=== PATIENT | male | born 1970 | race Caucasian/White ===

== ENCOUNTER → 2021-11-25 08:31 | Outpatient (BNVA) | payer OTHER, SELFPAY | PROVIDERS: PCP Nurse Practitioner Family; Visit Provider Urology | DX: N30.10 Interstitial cystitis (chronic) without hematuria (principal) | CPT/HCPCS: 51798 ==

== ENCOUNTER → 2022-11-25 08:29 | Outpatient (BNVA) | payer OTHER, SELFPAY | PROVIDERS: PCP Nurse Practitioner Family; Visit Provider Urology | DX: Z13.89 Encounter for screening for other disorder (principal) ==

== ENCOUNTER 2023-11-30 08:29 | Outpatient (AMB) | payer OTHER, SELFPAY ==
--- NOTE | 2023-11-30 08:42 | A.OFFVIS_ITS ---
Intake Intake Visit Reasons: 1Y Follow Up(interstitial cystitis) Intake Note: Patient presents today for a follow-up on: Interstitial Cystitis Meds- None Allergies to Antibiotic- No Known Allergies Blood Thinner- None Patient Symptoms: Patient stated he has the same symptoms of his current condition. Fashion Adviser Required: No Accompanied by: Self / Same As Patient Allergies No Known Allergies Allergy (Verified 11/30/23 08:50) HPI HPI Comments History of Present Illness Details Mr Crow is a very pleasant male. They are a patient of Dr Espinal. They are seen in the office today for the following urologic conditions. - interstitial cystitis - erectile dysfunction Bladder stable as long as maintain diet Discussed again use of Tums and famotodine Found bottle of ranitidine that worked very well for symptom control Discussed swimming hole in [facility] and [facility] Interstitial cystitis: ? The interstitial cystitis was diagnosed?when he was in his 20's.? Current symptoms include?pelvic tenderness, urinary frequency, urinary urgency these have been present for many years. At this point in time he wakes 2 times at night. - ranitidine controls dysuria.? Severity of the pain?that is moderate ? Character of the pain is?chronic, dull, fluctuating ? Aggravating factors include stress ? Alleviating factors include?no alleviating factors ? Recent labs included?02/15 T 419 ?11/18 PSA 1.5.? Prior testing included?cystoscopy with bladder distention performed. Around 1999. Led to aggravation of symptoms [facility] Medical History Hypertension, benign Interstitial cystitis Nocturia Priapism Weak urinary stream Surgical History History of surgery Review of Systems Const Denies chills and Denies fever(s) Card Reports no additional complaints and Denies syncope Resp Denies cough GI Denies abdominal pain and Denies heartburn Reports as per HPI and Denies change in libido Neuro Denies syncope Psych Denies change in libido Endo Denies change in libido Physical Exam Const General: cooperative, healthy appearing, comfortable and no acute distress Orientation/consciousness: patient oriented x3 HEENT Face and sinus: Yes normal facial exam Mouth: moist mucous membranes Neck Neck: Yes normal visual inspection, Yes full ROM and Yes trachea midline Chest Chest palpation & inspection: normal inspection of the chest Resp Effort & Inspection: normal respiratory effort, able to speak in complete sentences and no respiratory distress GI Inspection: Yes normal to inspection Back/Spine/Pelvis Cervical Spine: normal cervical lordosis Thoracic/Lumbar Spine: thoracic and lumbar spine normal to inspection Skin General skin exam: no rashes or lesions noted Neuro General: patient oriented x3, gait normal, tone normal and moves all extremities Extrem General: Yes normal to inspection and Yes capillary refill normal Results AMB Urinalysis, Automated UA Leukoctes 0 Sarah/uL Last Edit by Bailey Aquino CMA on 11/30/23 08 :56 UA Nitrite Negative Last Edit by Bailey Aquino CMA on 11/30/23 08: 56 UA Urobilinogen 0.2 mg/dL Last Edit by Bailey Aquino CMA on 4 08:56 UA Protein 15 mg/dL Last Edit by Bailey Aquino CMA on 11/30/23 08:5 6 UA pH 6.0 Last Edit by Bailey Aquino CMA on 11/30/23 08:56 UA Blood 25 Roberto Carlos/uL Last Edit by Bailey Aquino CMA on 11/30/23 08:56 UA Specific [place] 1.030 Last Edit by Bailey Aquino CMA on 08:56 UA Ketone Negative Last Edit by Bailey Aquino CMA on 11/30/23 08:5 6 UA Bilirubin 0 mg/dL Last Edit by Bailey Aquino CMA on 11/30/23 08: 56 UA Glucose 0 mg/dL Last Edit by Bailey Aquino CMA on 11/30/23 08:56 Assessment & Plan Assessment & Plan (1) Interstitial cystitis: Code(s): N30.10 - Interstitial cystitis (chronic) without hematuria Plan 12 month follow-up Orders: Orders AMB Urinalysis Automated Today R33.9 - Retention of urine, unspecified Patient Instructions: Imaging studies, laboratory and physical exam results were discussed and reviewed in detail. No major barriers to patient understanding were identified. An opportunity to ask questions regarding the treatment plan was provided. All questions were answered. The patient expressed understanding and agreement with the above treatment plan. The patient is aware they should contact our office by phone for worsening of their current condition or the appearance of new urologic symptoms. Compliance is encouraged with any medications and followup testing that is ordered. It is a privilege to participate in the urologic care of your patient. If you have any questions or concerns regarding treatment for the above conditions, or other urologic issues, please do not hesitate to contact me. The office telephone contact is [phone]. This note is constructed using voice recognition software. While every effort has been made to ensure accuracy manager process excellence errors may have been included. Yours sincerely, Dr Jaleel Mckeon MD, [facility] - Urology Providers of Expert, Compassionate Care for the Genitourinary System Coding Level of Care Code Est Pt Level 4 (70130) Diagnoses Interstitial cystitis N30.10
== END 2023-11-30 09:05 | disposition home or self-care (01) ==
PROVIDERS: Visit Provider Urology
DX: N30.10 Interstitial cystitis (chronic) without hematuria (principal); R33.9 Retention of urine, unspecified
CPT/HCPCS: 99213

== ENCOUNTER → 2023-11-30 08:29 | Outpatient (BNVA) | payer OTHER, SELFPAY | PROVIDERS: Visit Provider Urology | DX: N30.10 Interstitial cystitis (chronic) without hematuria (principal) | CPT/HCPCS: 81003 ==

== ENCOUNTER 2024-06-05 09:25 | Outpatient (REF) | payer OTHER, SELFPAY ==
[2024-06-05 11:42] LABS: Appearance Urine Clear; Color Urine Dark Yellow; Glucose Urine UA Negative (Negative); Leukocyte Esterase Urine Negative (Negative); Nitrite Urine Negative (Negative); PH 5.5 (5.0-9.0); Specific Gravity - Urine >= 1.030 (1.005-1.025); Urine Blood Negative (Negative); Urine Ketones Trace mg/dL (Negative); Urine Protein Trace mg/dL (Neg-Trace)
[2024-06-05 11:47] LABS: Bacteria Urine None Seen (None Seen); Hyaline Casts Urine 0-2 /LPF (0-2); RBC Urine 0-2 /HPF (0-2); Squamous Epithelial Cell Urine 0-2 /HPF (0-2); WBC Urine 0-5 /HPF (0-5)
== END 2024-06-05 09:26 | disposition home or self-care (01) ==
LOC: HO.WFDLDS 09:25
PROVIDERS: Visit Provider Urology
DX: N30.10 Interstitial cystitis (chronic) without hematuria (principal)
CPT/HCPCS: 81001; 87086

== ENCOUNTER 2024-07-05 12:57 | Outpatient (AMB) | payer OTHER, SELFPAY ==
--- NOTE | 2024-07-05 13:23 | MHC.OFFVIS ---
Intake Visit Reasons: IC flare? Intake Note: Patient is Present for IC Flare up concerns Urology Medication: None Antibiotic Allergies:None Blood Thinners: None Patient states that he has been having dull pain in his bladder area that is present all the time. Patient states that the pain does come and go but it has been very painful for patient. Patient has recently been triaged by nurse, pt had reported then that he gets radiating pain after intercourse. Patient is concerned on his symptoms Education Liaison Required: No Accompanied by: Self / Same As Patient Allergies No Known Allergies Allergy (Verified 07/05/24 13:25) HPI Comments Details: Mr Crow is a very pleasant male. They are a patient of Dr Espinal. They are seen in the office today for the following urologic conditions. - interstitial cystitis - erectile dysfunction - prostatitis Pain with ejaculation On exam with prostatitis Therapy with Bactrim, Naprosyn, prednisone 4 week follow-up Bladder stable as long as maintain diet Discussed again use of Tums and famotodine Found bottle of ranitidine that worked very well for symptom control Discussed swimming [facility] Interstitial cystitis: ? The interstitial cystitis was diagnosed?when he was in his 20's.? Current symptoms include?pelvic tenderness, urinary frequency, urinary urgency these have been present for many years. At this point in time he wakes 2 times at night. - ranitidine controls dysuria.? Severity of the pain?that is moderate ? Character of the pain is?chronic, dull, fluctuating ? Aggravating factors include stress ? Alleviating factors include?no alleviating factors ? Recent labs included?02/15 T 419 ?11/18 PSA 1.5.? Prior testing included?cystoscopy with bladder distention performed. Around 1999. Led to aggravation of symptoms COUNT INCLUDES [facility] Medical History (Updated 07/05/24 @ 13:31 by Jaleel Mckeon MD) Hypertension, benign Nocturia Weak urinary stream Priapism Interstitial cystitis Surgical History History of surgery Review of Systems Const Denies chills and Denies fever(s) Card Reports no additional complaints and Denies syncope Resp Denies cough GI Denies abdominal pain and Denies heartburn Reports as per HPI and Denies change in libido Neuro Denies syncope Psych Denies change in libido Endo Denies change in libido Physical Exam Const General: cooperative, healthy appearing, comfortable and no acute distress Orientation/consciousness: patient oriented x3 HEENT Face and sinus: Yes normal facial exam Mouth: moist mucous membranes Neck Neck: Yes normal visual inspection, Yes full ROM and Yes trachea midline Chest Chest palpation & inspection: normal inspection of the chest Resp Effort & Inspection: normal respiratory effort, able to speak in complete sentences and no respiratory distress GI Inspection: Yes normal to inspection Rectal Exam - Male: Yes normal sphincter tone and Yes prostate normal Male General Exam: Yes normal external exam Penis: normal penis and circumcised Meatus: meatus normal Scrotum: scrotum normal Testes: Testes normal Back/Spine/Pelvis Cervical Spine: normal cervical lordosis Thoracic/Lumbar Spine: thoracic and lumbar spine normal to inspection Skin General skin exam: no rashes or lesions noted Neuro General: patient oriented x3, gait normal, tone normal and moves all extremities Extrem General: Yes normal to inspection and Yes capillary refill normal Results AMB Urinalysis, Automated UA Leukoctes 0 Sarah/uL Last Edit by CARROLL Campoverde on 07/05/24 13:40 UA Nitrite Negative Last Edit by CARRLOL Campoverde on 07/05/24 13:40 UA Urobilinogen 0.2 mg/dL Last Edit by CARROLL Campoverde on 07/05/24 13:40 UA Protein 0 mg/dL Last Edit by CARROLL Campoverde on 07/05/24 13:40 UA pH 5.5 Last Edit by CARROLL Campoverde on 07/05/24 13:40 UA Blood 0 Roberto Carlos/uL Last Edit by CARROLL Campoverde on 07/05/24 13:40 UA Specific [place] 1.015 Last Edit by CARROLL Campoverde on 07/05/24 13:40 UA Ketone Negative Last Edit by CARROLL Campoverde on 07/05/24 13:40 UA Bilirubin 0 mg/dL Last Edit by CARROLL Campoverde on 07/05/24 13:40 UA Glucose 0 mg/dL Last Edit by CARROLL Campoverde on 07/05/24 13:40 Assessment & Plan Assessment & Plan (1) Weak urinary stream: Code(s): R39.12 - Poor urinary stream Category: Medical (2) Prostatitis: Code(s): N41.9 - Inflammatory disease of prostate, unspecified Category: Medical (3) Interstitial cystitis: Code(s): N30.10 - Interstitial cystitis (chronic) without hematuria Category: Medical Plan Four week follow-up Orders: Orders AMB Urinalysis Automated Today Z13.9 - Encounter for screening, unspecified Medications: New sulfamethoxazole-trimethoprim 800-160 mg (Bactrim DS) 1 tab PO BID 14 days 28 tabs 0RF N39.0 - Urinary tract infection, site not specified, N41.9 - Inflammatory disease of prostate, unspecified naproxen (Naprosyn) 500 mg PO Q12H 30 days PRN 60 tabs 0RF pain N41.9 - Inflammatory disease of prostate, unspecified, S39.91XA - Unspecified injury of abdomen, initial encounter prednisone 20 mg PO DAILY 5 days 5 tabs 0RF N20.0 - Calculus of kidney, N41.9 - Inflammatory disease of prostate, unspecified Patient Instructions: Imaging studies, laboratory and physical exam results were discussed and reviewed in detail. No major barriers to patient understanding were identified. An opportunity to ask questions regarding the treatment plan was provided. All questions were answered. The patient expressed understanding and agreement with the above treatment plan. The patient is aware they should contact our office by phone for worsening of their current condition or the appearance of new urologic symptoms. Compliance is encouraged with any medications and followup testing that is ordered. It is a privilege to participate in the urologic care of your patient. If you have any questions or concerns regarding treatment for the above conditions, or other urologic issues, please do not hesitate to contact me. The office telephone contact is [phone]. This note is constructed using voice recognition software. While every effort has been made to ensure accuracy routing machine operator errors may have been included. Yours sincerely, Dr Jaleel Mckeon MD, [facility] - Urology Providers of Expert, Compassionate Care for the Genitourinary System Coding Level of Care Code Est Pt Level 4 (37651) Diagnoses Weak urinary stream R39.12 Prostatitis N41.9 Interstitial cystitis N30.10
== END 2024-07-05 13:53 | disposition home or self-care (01) ==
PROVIDERS: PCP Nurse Practitioner Family; Visit Provider Urology
DX: R39.12 Poor urinary stream (principal); N41.9 Inflammatory disease of prostate, unspecified; N30.10 Interstitial cystitis (chronic) without hematuria; Z13.9 Encounter for screening, unspecified
CPT/HCPCS: 99214

== ENCOUNTER → 2024-07-05 12:57 | Outpatient (BNVA) | payer OTHER, SELFPAY | PROVIDERS: PCP Nurse Practitioner Family; Visit Provider Urology | DX: N30.10 Interstitial cystitis (chronic) without hematuria (principal); N41.9 Inflammatory disease of prostate, unspecified; R39.12 Poor urinary stream | CPT/HCPCS: 81003 ==

== ENCOUNTER 2024-08-22 11:38 | Outpatient (AMB) | payer OTHER, SELFPAY ==
--- NOTE | 2024-08-22 11:45 | A.OFFVIS_ITS ---
Intake Visit Reasons: UTI Symptoms/Microgen Intake Note: Patient is present for UTI symptoms/Microgen testing Allergies No Known Allergies Allergy (Verified 07/05/24 13:25) HPI Comments Details: Mr Crow is a very pleasant male. They are a patient of Dr Espinal. They are seen in the office today for the following urologic conditions. - interstitial cystitis - erectile dysfunction - prostatitis Persistent prostatitis Prior therapy with Bactrim, Naprosyn and prednisone Microgen performed today One-week follow-up tele for targeted therapy Found bottle of ranitidine that worked very well for symptom control Discussed swimming hole in [facility] and [facility] Interstitial cystitis: ? The interstitial cystitis was diagnosed?when he was in his 20's.? Current symptoms include?pelvic tenderness, urinary frequency, urinary urgency these have been present for many years. At this point in time he wakes 2 times at night. - ranitidine controls dysuria.? Severity of the pain?that is moderate ? Character of the pain is?chronic, dull, fluctuating ? Aggravating factors include stress ? Alleviating factors include?no alleviating factors ? Recent labs included?02/15 T 419 ?11/18 PSA 1.5.? Prior testing included?cystoscopy with bladder distention performed. Around 1999. Led to aggravation of symptoms [facility] Medical History (Updated 07/05/24 @ 13:31 by Jaleel Mckeon MD) Hypertension, benign Nocturia Weak urinary stream Priapism Interstitial cystitis Surgical History History of surgery Review of Systems Const Denies chills and Denies fever(s) Card Reports no additional complaints and Denies syncope Resp Denies cough GI Denies abdominal pain and Denies heartburn Reports as per HPI and Denies change in libido Neuro Denies syncope Psych Denies change in libido Endo Denies change in libido Physical Exam Const General: cooperative, healthy appearing, comfortable and no acute distress Orientation/consciousness: patient oriented x3 HEENT Face and sinus: Yes normal facial exam Mouth: moist mucous membranes Neck Neck: Yes normal visual inspection, Yes full ROM and Yes trachea midline Chest Chest palpation & inspection: normal inspection of the chest Resp Effort & Inspection: normal respiratory effort, able to speak in complete sentences and no respiratory distress GI Inspection: Yes normal to inspection Rectal Exam - Male: Yes normal sphincter tone and Yes prostate normal Male General Exam: Yes normal external exam Penis: normal penis and circumcised Meatus: meatus normal Scrotum: scrotum normal Testes: Testes normal Back/Spine/Pelvis Cervical Spine: normal cervical lordosis Thoracic/Lumbar Spine: thoracic and lumbar spine normal to inspection Skin General skin exam: no rashes or lesions noted Neuro General: patient oriented x3, gait normal, tone normal and moves all extremities Extrem General: Yes normal to inspection and Yes capillary refill normal Assessment & Plan Assessment & Plan (1) Prostatitis: Code(s): N41.9 - Inflammatory disease of prostate, unspecified Category: Medical Plan Follow-up next week for determination of antibiotics Orders: Orders AMB Urinalysis Automated Today Z13.9 - Encounter for screening, unspecified Patient Instructions: Imaging studies, laboratory and physical exam results were discussed and reviewed in detail. No major barriers to patient understanding were identified. An opportunity to ask questions regarding the treatment plan was provided. All questions were answered. The patient expressed understanding and agreement with the above treatment plan. The patient is aware they should contact our office by phone for worsening of their current condition or the appearance of new urologic symptoms. Compliance is encouraged with any medications and followup testing that is ordered. It is a privilege to participate in the urologic care of your patient. If you have any questions or concerns regarding treatment for the above conditions, or other urologic issues, please do not hesitate to contact me. The office telephon e contact is [phone]. This note is constructed using voice recognition software. While every effort has been made to ensure accuracy healthcare market consultant errors may have been included. Yours sincerely, Dr Jaleel Mckeon MD, [facility] - Urology Providers of Expert, Compassionate Care for the Genitourinary System Coding Level of Care Code Est Pt Level 4 (50542) Diagnoses Prostatitis N41.9
== END 2024-08-22 12:16 | disposition home or self-care (01) ==
PROVIDERS: PCP Nurse Practitioner Family; Visit Provider Urology
DX: N41.9 Inflammatory disease of prostate, unspecified (principal)
CPT/HCPCS: 99214

== ENCOUNTER → 2024-08-22 11:38 | Outpatient (BNVA) | payer OTHER, SELFPAY | PROVIDERS: PCP Nurse Practitioner Family; Visit Provider Urology ==

== ENCOUNTER 2024-08-29 08:06 | Outpatient (AMB) | payer OTHER, SELFPAY ==
--- NOTE | 2024-08-29 08:08 | A.OFFVIS_ITS ---
Intake Visit Reasons: 1w/microgen(set)level 1/2 Intake Note: Patient is present for Telephone Microgen results Urology Med: started Linezoid today Antibiotic Allergies: None Blood Thinner: None Microgen 08/22/2024 Patient finished course of Doxycycline Filler Operator Required: No Accompanied by: Self / Same As Patient Allergies No Known Allergies Allergy (Verified 08/29/24 08:09) HPI Comments Details: Mr Crow is a very pleasant male. They are a patient of Dr Espinal. They are seen in the office today for the following urologic conditions. - interstitial cystitis - erectile dysfunction - prostatitis Telemedicine Evaluation 15 min Consultation [employer] Persistent prostatitis Prior therapy with Bactrim, Naprosyn and prednisone Microgen - combination Staphylococcus and corynebacterium Will treat with 2 weeks of linezolid 8 week follow-up Found bottle of ranitidine that worked very well for symptom control Discussed swimming hole in [facility] and [facility] Interstitial cystitis: ? The interstitial cystitis was diagnosed?when he was in his 20's.? Current symptoms include?pelvic tenderness, urinary frequency, urinary urgency these have been present for many years. At this point in time he wakes 2 times at night. - ranitidine controls dysuria.? Severity of the pain?that is moderate ? Character of the pain is?chronic, dull, fluctuating ? Aggravating factors include stress ? Alleviating factors include?no alleviating factors ? Recent labs included?02/15 T 419 ?11/18 PSA 1.5.? Prior testing included?cystoscopy with bladder distention performed. Around 1999. Led to aggravation of symptoms PFSH Medical History Hypertension, benign Nocturia Weak urinary stream Priapism Interstitial cystitis Surgical History History of surgery Review of Systems Const All systems reviewed & are unremarkable except as noted in HPI and below Reports no additional complaints Resp Reports no additional complaints GI Reports no additional complaints Reports as per HPI Musc Reports no additional complaints Physical Exam Telemedicine evaluation Appropriate responses Regular breathing rate and rhythm HEENT Head: Yes normal to inspection Ears: hearing grossly normal bilaterally Eyes General: appearance normal, both eyes and all related structures Neck Neck: Yes normal visual inspection Chest Chest palpation & inspection: normal inspection of the chest Resp Effort & Inspection: normal respiratory effort and able to speak in complete sentences Telehealth Telehealth Telehealth Platform: [employer] Location of provider rendering services: practice address Location of patient: address on file Patient Identification confirmed using: Name, : Yes Telehealth method: video Patient verbally consented to treatment: Yes Patient verbally consented to billing insurance company: Yes Patient informed of any privacy concerns related to visit: Yes Minutes spent on Phone/Video with Pt.: 15 Assessment & Plan Assessment & Plan (1) Interstitial cystitis: Code(s): N30.10 - Interstitial cystitis (chronic) without hematuria Category: Medical (2) Prostatitis: Code(s): N41.9 - Inflammatory disease of prostate, unspecified Category: Medical Plan Linezolid Eight week follow-up Patient Instructions: Imaging studies, laboratory and physical exam results were discussed and reviewed in detail. No major barriers to patient understanding were identified. An opportunity to ask questions regarding the treatment plan was provided. All questions were answered. The patient expressed understanding and agreement with the above treatment plan. The patient is aware they should contact our office by phone for worsening of their current condition or the appearance of new urologic symptoms. Compliance is encouraged with any medications and followup testing that is ordered. It is a privilege to participate in the urologic care of your patient. If you have any questions or concerns regarding treatment for the above conditions, or other urologic issues, please do not hesitate to contact me. The office telephone contact is [phone]. This note is constructed using voice recognition software. While every effort has been made to ensure accuracy paint roller winder errors may have been included. Yours sincerely, Dr Jaleel Mckeon MD, [facility] - Urology Providers of Expert, Compassionate Care for the Genitourinary System Coding Level of Care Code Tele Est Pt Level 3 (79211) Diagnoses Interstitial cystitis N30.10 Prostatitis N41.9
== END 2024-08-29 09:10 | disposition home or self-care (01) ==
LOC: HO.HUSH 08:06
PROVIDERS: PCP Nurse Practitioner Family; Visit Provider Urology
DX: N30.10 Interstitial cystitis (chronic) without hematuria (principal); N41.9 Inflammatory disease of prostate, unspecified
CPT/HCPCS: 99213

== ENCOUNTER → 2024-08-29 08:06 | Outpatient (BNVA) | payer OTHER, SELFPAY | PROVIDERS: PCP Nurse Practitioner Family; Visit Provider Urology ==

== ENCOUNTER 2024-10-24 10:15 | Outpatient (AMB) | payer OTHER, SELFPAY ==
--- NOTE | 2024-10-24 10:16 | MHC.OFFVIS ---
Intake Visit Reasons: 8w follow up Intake Note: Patient is present for 8W F/U Urology Medication:NAPROXEN Antibiotic Allergy:NONE Blood Thinner:NONE Medical Oncology Physician Required: No Allergies No Known Allergies Allergy (Verified 10/24/24 10:16) HPI Comments Details: Mr Crow is a very pleasant male. They are a patient of Dr Cason. They are seen in the office today for the following urologic conditions. - interstitial cystitis - erectile dysfunction - prostatitis Telemedicine Evaluation 15 min Consultation Character Booster Eulogio Video Persistent prostatitis Prior therapy with Bactrim, Naprosyn and prednisone Microgen - combination Staphylococcus and corynebacterium Treated with 4 weeks of combination doxcycyline, clindamycin Found bottle of ranitidine that worked very well for symptom control [facility] and [facility] Interstitial cystitis: ? The interstitial cystitis was diagnosed?when he was in his 20's.? Current symptoms include?pelvic tenderness, urinary frequency, urinary urgency these have been present for many years. At this point in time he wakes 2 times at night. - ranitidine controls dysuria.? Severity of the pain?that is moderate ? Character of the pain is?chronic, dull, fluctuating ? Aggravating factors include stress ? Alleviating factors include?no alleviating factors ? Recent labs included?02/15 T 419 ?11/18 PSA 1.5.? Prior testing included?cystoscopy with bladder distention performed. Around 1999. Led to aggravation of symptoms [facility] Medical History Hypertension, benign Nocturia Weak urinary stream Priapism Interstitial cystitis Surgical History History of surgery Review of Systems Const All systems reviewed & are unremarkable except as noted in HPI and below Reports no additional complaints Resp Reports no additional complaints GI Reports no additional complaints Reports as per HPI Musc Reports no additional complaints Physical Exam Telemedicine evaluation Appropriate responses Regular breathing rate and rhythm HEENT Head: Yes normal to inspection Ears: hearing grossly normal bilaterally Eyes General: appearance normal, both eyes and all related structures Neck Neck: Yes normal visual inspection Chest Chest palpation & inspection: normal inspection of the chest Resp Effort & Inspection: normal respiratory effort and able to speak in complete sentences Telehealth Telehealth Location of provider rendering services: practice address Location of patient: address on file Patient Identification confirmed using: Name, : Yes Telehealth method: voice only Patient verbally consented to treatment: Yes Patient verbally consented to billing insurance company: Yes Patient informed of any privacy concerns related to visit: Yes Assessment & Plan Assessment & Plan (1) Interstitial cystitis: Code(s): N30.10 - Interstitial cystitis (chronic) without hematuria Category: Medical (2) Prostatitis: Code(s): N41.9 - Inflammatory disease of prostate, unspecified Category: Medical Plan Trial antibiotics Four week follow-up Medications: New doxycycline hyclate 100 mg PO DAILY 28 days 28 tabs 0RF N30.90 - Cystitis, unspecified without hematuria, N41.9 - Inflammatory disease of prostate, unspecified clindamycin HCl 300 mg PO TID 21 days 63 caps 0RF N41.9 - Inflammatory disease of prostate, unspecified Patient Instructions: Imaging studies, laboratory and physical exam results were discussed and reviewed in detail. No major barriers to patient understanding were identified. An opportunity to ask questions regarding the treatment plan was provided. All questions were answered. The patient expressed understanding and agreement with the above treatment plan. The patient is aware they should contact our office by phone for worsening of their current condition or the appearance of new urologic symptoms. Compliance is encouraged with any medications and followup testing that is ordered. It is a privilege to participate in the urologic care of your patient. If you have any questions or concerns regarding treatment for the above conditions, or other urologic issues, please do not hesitate to contact me. The office telephone contact is [phone]. This note is constructed using voice recognition software. While every effort has been made to ensure accuracy library circulation clerk errors may have been included. Yours sincerely, Dr Jaleel Mckeon MD, [place] [facility] - Urology Providers of Expert, Compassionate Care for the Genitourinary System Coding Level of Care Code Tele Est Pt Level 4 (21093) Diagnoses Interstitial cystitis N30.10 Prostatitis N41.9
== END 2024-10-24 11:28 | disposition home or self-care (01) ==
LOC: HO.HUSH 10:15
PROVIDERS: PCP Nurse Practitioner Family; Visit Provider Urology
DX: N30.10 Interstitial cystitis (chronic) without hematuria (principal); N41.9 Inflammatory disease of prostate, unspecified
CPT/HCPCS: 99442

== ENCOUNTER 2024-11-19 09:08 | Outpatient (AMB) | payer OTHER, SELFPAY ==
--- NOTE | 2024-11-19 09:09 | MHC.OFFVIS ---
Intake Visit Reasons: 4w followup(Linezolid) Intake Note: Patient is present for 4W F/U (LINEZOLID) Urology Medication:NAPROXEN Antibiotic Allergy:NONE Blood Thinner:NONE Territory Sales Executive Required: No Allergies No Known Allergies Allergy (Verified 11/19/24 09:09) HPI Comments Details: Mr Crow is a very pleasant male. They are a patient of Dr Cason. They are seen in the office today for the following urologic conditions. - interstitial cystitis - erectile dysfunction - prostatitis Telemedicine Evaluation 15 min Consultation MoneyReef Eulogio Video f/u from 4 weeks of linezolid therapy Has had improvement still with some discomfort in his pelvis Switch to Mobic for 1 month Discussed symptoms from infection versus inflammation perspective Six-month follow-up Prostatitis Prior therapy with Bactrim, Naprosyn and prednisone Microgen - 08/22 combination Staphylococcus and corynebacterium - initial therapy 4 weeks of combination doxcycyline, clindamycin Found bottle of ranitidine that worked very well for symptom control Previously discussed swimming hole in [facility] and [facility] Interstitial cystitis: ? The interstitial cystitis was diagnosed?when he was in his 20's.? Current symptoms include?pelvic tenderness, urinary frequency, urinary urgency these have been present for many years. At this point in time he wakes 2 times at night. - ranitidine controls dysuria.? Severity of the pain?that is moderate ? Character of the pain is?chronic, dull, fluctuating ? Aggravating factors include stress ? Alleviating factors include?no alleviating factors ? Recent labs included?02/15 T 419 ?11/18 PSA 1.5.? Prior testing included?cystoscopy with bladder distention performed. Around 1999. Led to aggravation of symptoms [facility] Medical History Hypertension, benign Nocturia Weak urinary stream Priapism Interstitial cystitis Surgical History History of surgery Review of Systems Const All systems reviewed & are unremarkable except as noted in HPI and below Reports no additional complaints Resp Reports no additional complaints GI Reports no additional complaints Reports as per HPI Musc Reports no additional complaints Physical Exam Telemedicine evaluation Appropriate responses Regular breathing rate and rhythm HEENT Head: Yes normal to inspection Ears: hearing grossly normal bilaterally Eyes General: appearance normal, both eyes and all related structures Neck Neck: Yes normal visual inspection Chest Chest palpation & inspection: normal inspection of the chest Resp Effort & Inspection: normal respiratory effort and able to speak in complete sentences Telehealth Telehealth Location of provider rendering services: practice address Location of patient: address on file Patient Identification confirmed using: Name, : Yes Telehealth method: voice only Patient verbally consented to treatment: Yes Patient verbally consented to billing insurance company: Yes Patient informed of any privacy concerns related to visit: Yes Assessment & Plan Assessment & Plan (1) Prostatitis: Code(s): N41.9 - Inflammatory disease of prostate, unspecified Category: Medical Plan Six-month follow-up Medications: New meloxicam 15 mg PO DAILY 30 days 30 tabs 0RF N41.9 - Inflammatory disease of prostate, unspecified Patient Instructions: Imaging studies, laboratory and physical exam results were discussed and reviewed in detail. No major barriers to patient understanding were identified. An opportunity to ask questions regarding the treatment plan was provided. All questions were answered. The patient expressed understanding and agreement with the above treatment plan. The patient is aware they should contact our office by phone for worsening of their current condition or the appearance of new urologic symptoms. Compliance is encouraged with any medications and followup testing that is ordered. It is a privilege to participate in the urologic care of your patient. If you have any questions or concerns regarding treatment for the above conditions, or other urologic issues, please do not hesitate to contact me. The office telephone contact is [phone]. This note is constructed using voice recognition software. While every effort has been made to ensure accuracy mold hoister errors may have been included. Yours sincerely, Dr Jaleel Mckeon MD, [place] [facility] - Urology Providers of Expert, Compassionate Care for the Genitourinary System Coding Level of Care Code Tele Est Pt Level 3 (05019) Diagnoses Prostatitis N41.9
== END 2024-11-19 09:39 | disposition home or self-care (01) ==
LOC: HO.HUSH 09:08
PROVIDERS: PCP Nurse Practitioner Family; Visit Provider Urology
DX: N41.9 Inflammatory disease of prostate, unspecified (principal)
CPT/HCPCS: 98013

== ENCOUNTER → 2024-11-19 09:08 | Outpatient (BNVA) | payer OTHER, SELFPAY | PROVIDERS: PCP Nurse Practitioner Family; Visit Provider Urology ==

== ENCOUNTER 2025-02-14 10:15 | Outpatient (AMB) | payer OTHER, SELFPAY ==
--- NOTE | 2025-02-14 10:15 | MHC.OFFVIS ---
Intake Visit Reasons: discuss prostatitis tx-doesnt want microgen Intake Note: Pt presents as a telehealth visit today to discuss prostatitis. Allergies No Known Allergies Allergy (Verified 02/14/25 10:15) HPI Comments Details: Mr Crow is a very pleasant male. He is a patient of Dr Cason. He is seen for the following urologic conditions. - interstitial cystitis - erectile dysfunction - prostatitis Telemedicine Evaluation 15 min Consultation Sprout Eulogio Video Three-month follow-up for prostatitis therapy f/u from 4 weeks of linezolid therapy Prostatitis Prior therapy with Bactrim, Naprosyn and prednisone Microgen - 08/22 combination Staphylococcus and corynebacterium - initial therapy 4 weeks of combination doxcycyline, clindamycin Found bottle of ranitidine that worked very well for symptom control Previously discussed swimming hole in [facility] and [facility] Interstitial Cystitis: ? The interstitial cystitis was diagnosed?when he was in his 20's.? Current symptoms include?pelvic tenderness, urinary frequency, urinary urgency these have been present for many years. At this point in time he wakes 2 times at night. - ranitidine controls dysuria.? Severity of the pain?that is moderate ? Character of the pain is?chronic, dull, fluctuating ? Aggravating factors include stress ? Alleviating factors include?no alleviating factors ? Recent labs included?02/15 T 419 ?11/18 PSA 1.5.? Prior testing included?cystoscopy with bladder distention performed. Around 1999. Led to aggravation of symptoms [facility] Medical History Hypertension, benign Nocturia Weak urinary stream Priapism Interstitial cystitis Surgical History History of surgery Review of Systems Const All systems reviewed & are unremarkable except as noted in HPI and below Reports no additional complaints Resp Reports no additional complaints GI Reports no additional complaints Reports as per HPI Musc Reports no additional complaints Physical Exam Telemedicine evaluation Appropriate responses Regular breathing rate and rhythm HEENT Head: Yes normal to inspection Ears: hearing grossly normal bilaterally Eyes General: appearance normal, both eyes and all related structures Neck Neck: Yes normal visual inspection Chest Chest palpation & inspection: normal inspection of the chest Resp Effort & Inspection: normal respiratory effort and able to speak in complete sentences Telehealth Telehealth Telehealth Platform: Sprout Location of provider rendering services: practice address Location of patient: address on file Patient Identification confirmed using: Name, : Yes Telehealth method: video Patient verbally consented to treatment: Yes Patient verbally consented to billing insurance company: Yes Patient informed of any privacy concerns related to visit: Yes Assessment & Plan Assessment & Plan (1) Interstitial cystitis: Code(s): N30.10 - Interstitial cystitis (chronic) without hematuria Category: Medical (2) Prostatitis: Code(s): N41.9 - Inflammatory disease of prostate, unspecified Category: Medical (3) 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: Code(s): R10.2 - Pelvic and perineal pain Category: Medical Plan Referral to PT for pelvic floor therapy Trial triple combo therapy for IC flare Orders: Orders PT Evaluation and Treatment Today R10.2 - Pelvic and perineal pain Medications: New amitriptyline 25 mg PO BEDTIME 30 days 30 tabs 0RF N30.10 - Interstitial cystitis (chronic) without hematuria gabapentin 300 mg PO BEDTIME 30 days 30 caps 0RF N30.10 - Interstitial cystitis (chronic) without hematuria, R23.2 - [place], T50.905A - Adverse effect of unspecified drugs, medicaments and biological substances, initial encounter naproxen (Naprosyn) 500 mg PO Q12H 30 days PRN 60 tabs 0RF pain N30.10 - Interstitial cystitis (chronic) without hematuria, S39.91XA - Unspecified injury of abdomen, initial encounter Patient Instructions: This note is constructed using voice recognition software. While every effort has been made to ensure accuracy civil laboratory technician errors may have been included. Imaging studies, laboratory and physical exam results were discussed and reviewed in detail. No major barriers to patient understanding were identified. An opportunity to ask questions regarding the treatment plan was provided. All questions were answered. The patient expressed understanding and agreement with the above treatment plan. The patient is aware they should contact our office by phone for worsening of their current condition or the appearance of new urologic symptoms. Compliance is encouraged with any medications and followup testing that is ordered. It is a privilege to participate in the urologic care of your patient. If you have any questions or concerns regarding treatment for the above conditions, or other urologic issues, please do not hesitate to contact me. The office telephone contact is [phone]. 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
== END 2025-02-14 11:30 | disposition home or self-care (01) ==
LOC: HO.HUSH 10:15
PROVIDERS: PCP Nurse Practitioner Family; Visit Provider Urology
DX: N30.10 Interstitial cystitis (chronic) without hematuria (principal); N41.9 Inflammatory disease of prostate, unspecified; R10.2 Pelvic and perineal pain
CPT/HCPCS: 99214

== ENCOUNTER → 2025-02-14 10:15 | Outpatient (BNVA) | payer OTHER, SELFPAY | PROVIDERS: PCP Nurse Practitioner Family; Visit Provider Urology ==

== ENCOUNTER 2025-05-27 08:06 | Outpatient (AMB) | payer OTHER, SELFPAY ==
--- NOTE | 2025-05-27 08:09 | MHC.OFFVIS ---
Intake Visit Reasons: 3m follow up Intake Note: Pt presents as a telehealth visit today for 3 mo follow up on prostatitis. Urology meds: none Blood Thinners : none Hydroponics Grower Required: No Accompanied by: Self / Same As Patient Allergies No Known Allergies Allergy (Verified 05/27/25 08:11) HPI Comments Details: Mr Crow is a very pleasant male. He is a patient of Dr Cason. He is seen for the following urologic conditions. - interstitial cystitis - erectile dysfunction - prostatitis Telemedicine Evaluation 15 min Consultation [employer]Gift Eulogio Video Three-month follow-up flare of IC Stabilized Nocturia 1-3x Prostatitis Prior therapy with Bactrim, Naprosyn and prednisone Microgen - 08/22 combination Staphylococcus and corynebacterium - initial therapy 4 weeks of combination doxcycyline, clindamycin Eventually required linezolid Found bottle of ranitidine that worked very well for symptom control Previously discussed swimming hole in [facility] and [facility] Interstitial Cystitis: ? The interstitial cystitis was diagnosed?when he was in his 20's.? Current symptoms include?pelvic tenderness, urinary frequency, urinary urgency these have been present for many years. At this point in time he wakes 2 times at night. - ranitidine controls dysuria.? Severity of the pain?that is moderate ? Character of the pain is?chronic, dull, fluctuating ? Aggravating factors include stress ? Alleviating factors include?no alleviating factors ? Recent labs included?02/15 T 419 ?11/18 PSA 1.5.? Prior testing included?cystoscopy with bladder distention performed. Around 1999. Led to aggravation of symptoms PFSH Medical History Hypertension, benign Nocturia Weak urinary stream Priapism Interstitial cystitis Surgical History History of surgery Review of Systems Const All systems reviewed & are unremarkable except as noted in HPI and below Reports no additional complaints Resp Reports no additional complaints GI Reports no additional complaints Reports as per HPI Musc Reports no additional complaints Physical Exam Telemedicine evaluation Appropriate responses Regular breathing rate and rhythm HEENT Head: Yes normal to inspection Ears: hearing grossly normal bilaterally Eyes General: appearance normal, both eyes and all related structures Neck Neck: Yes normal visual inspection Chest Chest palpation & inspection: normal inspection of the chest Resp Effort & Inspection: normal respiratory effort and able to speak in complete sentences Telehealth Telehealth Telehealth Platform: TripleGift Location of provider rendering services: practice address Location of patient: address on file Patient Identification confirmed using: Name, : Yes Telehealth method: video Patient verbally consented to treatment: Yes Patient verbally consented to billing insurance company: Yes Patient informed of any privacy concerns related to visit: Yes Minutes spent on Phone/Video with Pt.: 15 Assessment & Plan Assessment & Plan (1) Interstitial cystitis: Code(s): N30.10 - Interstitial cystitis (chronic) without hematuria Category: Medical (2) 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 While every effort has been made to ensure accuracy assistant finance manager errors may have been included. Imaging studies, laboratory and physical exam results were discussed and reviewed in detail. No major barriers to patient understanding were identified. An opportunity to ask questions regarding the treatment plan was provided. All questions were answered. The patient expressed understanding and agreement with the above treatment plan. The patient is aware they should contact our office by phone for worsening of their current condition or the appearance of new urologic symptoms. Compliance is encouraged with any medications and followup testing that is ordered. It is a privilege to participate in the urologic care of your patient. If you have any questions or concerns regarding treatment for the above conditions, or other urologic issues, please do not hesitate to contact me. The office telephone contact is [phone]. 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
== END 2025-05-27 10:33 | disposition home or self-care (01) ==
LOC: HO.HUSH 08:06
PROVIDERS: PCP Nurse Practitioner Family; Visit Provider Urology
DX: N30.10 Interstitial cystitis (chronic) without hematuria (principal); R10.2 Pelvic and perineal pain
CPT/HCPCS: 99213

== ENCOUNTER 2025-08-21 09:00 | Outpatient (RCR) | payer OTHER, SELFPAY ==
--- NOTE | 2025-07-01 11:26 | MHC.PT.EP ---
[facility] [place] Office [place] Office [place] Office [address] [place] [address] [phone] F: [phone] F: [phone] F: [phone] F: [phone] Physical Therapy Plan of Care Date of Evaluation: 07/01/25 Date of Surgery: NA Diagnosis: Pelvic and perineal pain Assessment: Darnell is a 55 year old male who is referred to PT for pelvic and perineal pain . He reports of having pain in the lower abdomen for the last 15 years. He states that the pain started after a fall on his lower belly and hitting ice while sledding. He has had constant abdominal pain since then. In the past he has had h/o diverticulitis needing colon resection. On PT examination he presented with 6/10 pain in lower abdomen and bladder, decreased trunk ROM, decreased B LE ROM, decreased core strength, altered posture and decreased mobility of the abdominal fascia. Ano-rectal exam deferred due to time. He is independent with all ADLS but has constant pain. He is self employed. He would benefit from skilled PT to address the aforementioned impairments and improve tolerance to functional activities. Frequency and Duration: The patient will be seen 1/week for 8 weeks Short Term Goals: 1. Pt will have 50% decrease in lower abdominal pain in 2 weeks 2. Pt will report of being able to empty the bladder completely in 3 weeks 3. Pt will drop night voiding from 3 to 1 in 5 weeks Snf Goals: 1. Pt will deny having any pain with ejaculation in 6 weeks 2. Pt will deny having any abdomen and bladder in 7 weeks 3. Pt will be independent with all HEP for symptom management and maintenance following d/c in 8 weeks Treatment Plan: Modalities to reduce pain, spasms and effusion. Manual therapy to restore motion and function. Therapeutic exercise to improve strength and flexibility. Neuromuscular re-education for posture and balance. Therapeutic activities to return to functional activities of daily living. Electronically signed by: Please sign and return to therapist. Thank you for your referral.
--- NOTE | 2025-09-11 13:50 | MHC.PT.DC ---
[facility] [place] Office [place] Office [place] Office [address] [place] [address] [phone] F: [phone] F: [phone] F: [phone] F: [phone] Physical Therapy Discharge Report Diagnosis: Pelvic and perineal pain Date of Surgery: NA Date of Evaluation: 07/01/25 Date of Discharge: 09/11/25 Treatments to Date: 8 Cancellations to Date: 0 No Shows to Date: 0 Discharge Status: Patient Elected to Stop Discharge Summary: Darnell attended 8 PT visits and then canceled his appointment due to prostatitis flare. He did not know how long he would take to get better and return to PT therefore he requested d/c from PT. He is therefore being d/c from PT. Electronically signed by: Mamta Prado, PT DPT Please sign and return to therapist. Thank you for your referral.
== END 2025-09-11 13:50 | disposition home or self-care (01) ==
LOC: HO.PT 09:00
PROVIDERS: PCP Nurse Practitioner Family; Visit Provider Urology
DX: R10.20 Pelvic and perineal pain unspecified side (principal)
CPT/HCPCS: 97110; 97112; 97140; 97162